=== PATIENT | male | born 1945 | race Caucasian/White ===

== ENCOUNTER → 2016-04-24 | Outpatient (CLI) | payer BC, MEDICARE ==
[~2016-04-24] MED LIST: FISH1CAP PO; MULT1TAB6 PO; NAPR220C2 PO; OMEP20CA16 PO
[2016-04-24 11:27] LABS: ADD SCAN DIFF NO
[2016-04-24 11:39] LABS: BASOPHILS % 0.7 % (0.0-2.0); EOSINOPHILS # 0.2 10^3/ul (0.0-0.5); EOSINOPHILS % 3.5 % (0.0-7.0); HEMATOCRIT 41.9 % (42.0-52.0); HEMOGLOBIN 13.5 g/dl (14.0-18.0); LYMPHOCYTES # 1.3 10^3/ul (0.8-2.9); LYMPHOCYTES % 22.6 % (15.0-51.0); MEAN CORPUSCULAR HEMOGLOBIN 30.9 pg (29.0-33.0); MEAN CORPUSCULAR HGB CONC 32.2 g/dl (32.0-37.0); MEAN CORPUSCULAR VOLUME 95.9 fl (82.0-101.0); MEAN PLATELET VOLUME 10.3 fl (7.4-10.4); MONOCYTE # 0.7 10^3/ul (0.3-0.9); MONOCYTES % 12.8 % (0.0-11.0); NEUTROPHIL # 3.4 10^3/ul (1.6-7.5); NEUTROPHILS % 60.2 % (39.0-77.0); PLATELET COUNT 228 10^3/UL (140-415); RED BLOOD COUNT 4.37 10^6/ul (4.70-6.10); RED CELL DISTRIBUTION WIDTH 14.8 % (11.5-14.5); WHITE BLOOD COUNT 5.7 10^3/ul (4.8-10.8)
[2016-04-24 11:46] LABS: ALBUMIN 3.9 g/dl (3.3-4.9)
[2016-04-24 11:49] LABS: ALBUMIN/GLOBULIN RATIO 1.39; BILIRUBIN,INDIRECT 0.5 mg/dl (0-1.1); BILIRUBIN,TOTAL 0.5 mg/dl (0.2-1.3); CREATININE 1.2 mg/dl (0.61-1.24); TOTAL PROTEIN 6.7 g/dl (6.1-8.1)
[2016-04-24 11:50] LABS: CALCIUM 8.7 mg/dl (8.4-10.2)
--- NOTE | 2016-04-24 14:48 | RADRPT ---
PROCEDURE: US right lower extremity veins. CLINICAL INDICATION: Right leg pain and swelling. TECHNIQUE: Multiple longitudinal and transverse images of the right lower extremity veins were obt ained with rios scale and color Doppler imaging. The common femoral vein, femoral vein, and poplitea l vein were evaluated. 2D grayscale measurements with compression sonography, pulsed Doppler, color Doppler, and pulsed Doppler with augmentation. COMPARISON: No prior studies are available for comparison. FINDINGS: The right common femoral, femoral and popliteal veins are normally compressible throughout. Color f low demonstrates normal filling of the vessels. Normal waveforms are visualized and there is normal response to augmentation. There is a right popliteal fossa Logan's cyst measuring 1.9 x 2.6 x 3.8 cm. IMPRESSION: 1. No evidence of deep vein thrombosis involving the right lower extremity. 2. Right popliteal fossa Logan's cyst measuring 1.9 x 2.6 x 3.8 cm. RPTAT: QQ .Jewel Huerta MD, Date Time Electronically viewed and signed by .Jewel Huerta MD, on 04/24/2016 14:47 .R/
== END | disposition home or self-care (01) ==
LOC: VAS 10:36
PROVIDERS: ATTEND Internal Medicine
DX: I10 Essential (primary) hypertension (principal); M79.661 Pain in right lower leg; M71.21 Synovial cyst of popliteal space [Baker], right knee
CPT/HCPCS: 80053; 85025; 93971